=== PATIENT | male | born 1995 | race Caucasian/White ===

== ENCOUNTER 2020-05-12 22:40 | Emergency (ER) | payer OTHER, SELFPAY ==
[2020-05-12 22:44] VITALS: BP 128/87; PULSE 121; RESP 16; TEMP 37.5; O2SAT 98
[2020-05-12 23:31] LABS: Basophils Percent Auto 0.5 % (0.2-1.2); Eosinophils Percent Auto 0.8 % (0-4.4); Hematocrit 41.7 % (42.0-52.0); Hemoglobin 14.3 g/dL (14.0-18.0); Immature Granulocyte Absolute 0.03 K/mm3 (0.00-0.031); Immature Granulocyte Percent A 0.8 % (0-0.5); Lymphocytes Absolute Auto 1.08 K/mm3 (0.9-3.2); Lymphocytes Percent Auto 27.8 % (18.3-44.2); Mean Corpuscular HGB Conc 34.3 g/dl (32-36); Mean Corpuscular Hemoglobin 30.4 pg (26-34); Mean Corpuscular Volume 88.7 fl (80-100); Mean Platelet Volume 10.4 fl (7.4-10.4); Monocytes Absolute Auto 0.4 K/mm3 (0.1-0.6); Monocytes Percent Auto 10.6 % (2.6-8.5); Neutrophils Absolute Auto 2.3 K/mm3 (1.3-6.7); Neutrophils Percent Auto 59.5 % (45.5-73.1); Platelet Count Result 176 k/mm3 (150-375); Red Cell Distribution Width 12.5 % (11.5-14.5); White Blood Count 3.9 K/mm3 (4.5-10.0)
[2020-05-12 23:37] LABS: Add Urine Microscopic? YES; Appearance Urine Clear (Clear); Bilirubin Urine Negative (Negative); Blood Urine Negative (Negative); Color Urine Yellow (Yellow); Glucose Urine UA Negative (Negative); Ketones Urine Negative (Negative); Leukocyte Esterase Ur Negative LEU/UL (Negative); Mucus Urine Rare /lpf; Nitrate Urine Negative (Negative); Protein Urine Negative (Negative); RBC Urine 0-2 /hpf (0-2); Specific Grav Ur 1.006 (1.001-1.035); WBC Urine 0-3 /hpf
[2020-05-12 23:47] LABS: Alanine Aminotransferase 184 U/L (4-50); Albumin Level 4.1 g/dL (3.5-5.1); Alkaline Phosphatase 115 U/L (38-126); Anion Gap 3 mmol/L (8-16); Aspartate Amino Transferase 160 U/L (17-59); Bilirubin,Total 1.1 mg/dL (0.2-1.3); Blood Urea Nitrogen 8 mg/dL (9-20); Calcium 8.9 mg/dL (8.4-10.2); Carbon Dioxide 30 mmol/L (22-30); Chloride 103 mmol/L (98-107); Estimated CRCL calculation 121 ml/min; Estimated Glomerular Filt Rate > 60; Glucose 120 mg/dL (75-110); Lipase 74 U/L (23-300); Potassium 4.2 mmol/L (3.4-5.0); Sodium 136 mmol/L (137-145)
[2020-05-12 23:51] LABS: Amphetamine Screen Urine Negative (Negative); Barbiturate Screen Urine Negative (Negative); Benzodiazepines Screen Urine Negative (Negative); Cannabinoid Screen Urine Negative (Negative); Cocaine Screen Urine Negative (Negative); Methadone Screen Urine Negative (Negative); Opiate Screen Urine Negative (Negative); Phencyclidine Screen Urine Negative (Negative)
--- NOTE | 2020-05-12 23:57 | ED.GENADULT ---
HPI - General Adult General Chief complaint: Unspecified Stated complaint: dehydration Time Seen by Provider: 05/12/20 23:12 Source: patient Mode of arrival: ambulatory Limitations: no limitations History of Present Illness HPI narrative: 24-year-old male Patient presents with complaint that he is severely dehydrated Patient states that Sunday and Sunday he was working long hours and did not drink very much because he did not have time, although he did eat normally, but not completely clear why he would not of taking in fluids since he does not complain of nausea or vomiting or diarrhea or inability to access them Then yesterday and today he has had muscle aches and this evening reports he had a temperature of 103 at home With that he has no other particular focal complaints, specifically no sore throat, no cough, no chest pain, no vomiting or diarrhea, no urinary symptoms, no new rashes As well the patient states that he already had Covid Related Data Home Medications Medication Instructions Recorded Confirmed No Home Medications 05/12/20 Allergies Allergy/AdvReac Type Severity Reaction Status Date / Time No Known Allergies Allergy Mild Verified 05/12/20 22:45 [facility] Social History Social History Gender identity (if verbalized by the patient): Male Sexual Orientation (if Verbalized by the Patient): Straight or Heterosexual Course Course Emergency Course: Negative strep and influenza Other work-up and labs likewise nondiagnostic although low white count is certainly consistent with viral syndrome Seems like it would be too soon in the year for any type of tickborne illness Recommended isolation pending Covid outcome, and follow-up with his primary for consideration of other evaluation if his symptoms persist and that is negative Vital Signs Vital signs: Vital Signs Temperature 37.5 C 05/12/20 22:44 Pulse Rate 121 H 05/12/20 22:44 Respiratory Rate 16 05/12/20 22:44 Blood Pressure 128/87 05/12/20 22:44 Pulse Oximetry 98 05/12/20 22:44 Temperature 37.5 C 05/12/20 22:44 Pulse Rate 121 H 05/12/20 22:44 Respiratory Rate 16 05/12/20 22:44 Blood Pressure 128/87 05/12/20 22:44 Pulse Oximetry 98 05/12/20 22:44 Medical Decision Making Vital Signs Vital Signs: Vital Signs Temperature 37.5 C 05/12/20 22:44 Pulse Rate 121 H 05/12/20 22:44 Respiratory Rate 16 05/12/20 22:44 Blood Pressure 128/87 05/12/20 22:44 Pulse Oximetry 98 05/12/20 22:44 Temperature 37.5 C 05/12/20 22:44 Pulse Rate 121 H 05/12/20 22:44 Respiratory Rate 16 05/12/20 22:44 Blood Pressure 128/87 05/12/20 22:44 Pulse Oximetry 98 05/12/20 22:44 Lab Data Result diagrams: 05/12/20 23:19 05/12/20 23:19 Labs: Lab Results 05/12/20 05/12/20 05/12/20 Range/Units 23:19 23:19 23:19 WBC 3.9 L (4.5-10.0) K/mm3 RBC 4.70 (4.6-6.20) M/mm3 Hgb 14.3 (14.0-18.0) g/dL Hct 41.7 L (42.0-52.0) % MCV 88.7 (80-100) fl MCH 30.4 (26-34) pg MCHC 34.3 (32-36) g/dl RDW 12.5 (11.5-14.5) % Plt Count 176 (150-375) k/mm3 MPV 10.4 (7.4-10.4) fl Immature Gran % (Auto) 0.8 H (0-0.5) % Neut % (Auto) 59.5 (45.5-73.1) % Lymph % (Auto) 27.8 (18.3-44.2) % [place] % (Auto) 10.6 H (2.6-8.5) % Eos % (Auto) 0.8 (0-4.4) % Baso % (Auto) 0.5 (0.2-1.2) % Lymph # (Auto) 1.08 (0.9-3.2) K/mm3 [place] # (Auto) 0.4 (0.1-0.6) K/mm3 Eos # (Auto) 0.0 (0-0.3) K/mm3 Baso # (Auto) 0.0 (0.0-0.1) K/mm3 Abs Immat Gran (auto) 0.03 (0.00-0.031) K/mm3 Absolute Neuts (auto) 2.3 (1.3-6.7) K/mm3 Absolute Nucleated RBC 0.0 (0.0-0.012) K/mm3 Nucleated RBC % 0.0 (0.0-0.2) % Sodium 136 L (137-145) mmol/L Potassium 4.2 (3.4-5.0) mmol/L Chloride 103 (98-107) mmol/L Carbon Dioxide 30 (22-30) mmol/L Anion Gap 3 L (8-16) mmol/L BUN 8 L (
[2020-05-13 00:02] LABS: Creatine Kinase 49 U/L (55-170)
[2020-05-13 00:15] VITALS: BP 128/71; PULSE 101; RESP 16; O2SAT 99
[2020-05-13] MEDS: LACTATED RINGERS 1,000 ML 999 ML IV CONT (00:17)
--- NOTE | 2020-05-13 00:57 | ECG_ITS ---
Measurements Intervals [place] Rate: 83 P: 42 TX: 124 QRS: 69 QRSD: 100 T: 41 QT: 337 QTc: 397 Interpretive Statements SINUS RHYTHM ST ELEVATION IN ANTEROLAT/HIGH LAT LEADS- PROBABLY EARLY REPOLARIZATION BORDERLINE ECG Electronically Signed On 05-13-2020 7:12:58 CDT by Tyron Zapata D.O.
[2020-05-13 01:18] VITALS: BP 123/72; PULSE 89; RESP 16; O2SAT 99
[2020-05-13 01:49] LABS: Troponin I < 0.012 ng/mL (0.000-0.034)
[2020-05-13 17:33] LABS: SARS-CoV-2 RNA PCR Negative
--- NOTE | 2020-06-02 07:26 | ED.GENADULT ---
HPI - General Adult General Chief complaint: Unspecified Stated complaint: dehydration Time Seen by Provider: 05/12/20 23:12 Source: patient Mode of arrival: ambulatory Limitations: no limitations Related Data Allergies Allergy/AdvReac Type Severity Reaction Status Date / Time No Known Allergies Allergy Mild Verified 05/12/20 22:45 Review of Systems Review of Systems: All systems reviewed & are unremarkable except as noted in HPI and below Constitutional: Constitutional: Reports no additional constitutional complaints, Denies chills, Denies fever(s) and Denies headache(s) Eyes: Eyes: Reports no additional eye complaints and Denies change in vision ENT: Denies headache(s) and Denies sore throat Cardiovascular: Cardiovascular: Denies chest pain and Denies dyspnea Respiratory: Respiratory: Denies cough and Denies dyspnea Gastrointestinal: Gastrointestinal: Denies abdominal pain, Denies diarrhea and Denies vomiting Genitourinary: Genitourinary: Denies dysuria and Denies urinary frequency Musculoskeletal: Musculoskeletal: Denies deformity, Denies arthralgias, Denies joint swelling and Denies numbness Integumentary/Breasts: Skin/Breast: Denies rash and Denies wounds Neurologic: Denies headache(s), Denies focal weakness and Denies numbness Psychiatric: Psychiatric: Reports no additional psychiatric complaints Endocrine: Endocrine: Reports no additional endocrine complaints Hematologic/Lymphatic: Hematologic/Lymphatic: Reports no additional hematologic/lymphatic complaints Allergic/Immunologic: Allergic/Immunologic: Reports no additional allergic/immunologic complaints [facility] Past Medical History Medical History (Updated 05/17/20 @ 16:09 by Matthew Townsend MD) Acute hepatitis Encounter for screening for other viral diseases [place], enteric Family History Family History (Updated 05/17/20 @ 15:30 by Karan Garcia CMA) Grandparent Non-Hodgkin lymphoma Malignant neoplasm of prostate Social History Social History (Updated 05/17/20 @ 15:24 by Karan Garcia CMA) Smoking status: Never smoker Alcohol intake: never Substance use: never Gender identity (if verbalized by the patient): Male Course Vital Signs Vital signs: Vital Signs Temperature 37.5 C 05/12/20 22:44 Pulse Rate 121 H 05/12/20 22:44 Respiratory Rate 16 05/12/20 22:44 Blood Pressure 128/87 05/12/20 22:44 Pulse Oximetry 98 05/12/20 22:44 Temperature 37.5 C 05/12/20 22:44 Pulse Rate 89 05/13/20 01:18 Respiratory Rate 16 05/13/20 01:18 Blood Pressure 123/72 05/13/20 01:18 Pulse Oximetry 99 05/13/20 01:18 Medical Decision Making Vital Signs Vital Signs: Vital Signs Temperature 37.5 C 05/12/20 22:44 Pulse Rate 121 H 05/12/20 22:44 Respiratory Rate 16 05/12/20 22:44 Blood Pressure 128/87 05/12/20 22:44 Pulse Oximetry 98 05/12/20 22:44 Temperature 37.5 C 05/12/20 22:44 Pulse Rate 89 05/13/20 01:18 Respiratory Rate 16 05/13/20 01:18 Blood Pressure 123/72 05/13/20 01:18 Pulse Oximetry 99 05/13/20 01:18 Lab Data Result diagrams: 05/12/20 23:19 05/12/20 23:19 Labs: Lab Results 05/12/20 05/12/20 05/12/20 Range/Units 23:19 23:19 23:19 WBC 3.9 L (4.5-10.0) K/mm3 RBC 4.70 (4.6-6.20) M/mm3 Hgb 14.3 (14.0-18.0) g/dL Hct 41.7 L (42.0-52.0) % MCV 88.7 (80-100) fl MCH 30.4 (26-34) pg MCHC 34.3 (32-36) g/dl RDW 12.5 (11.5-14.5) % Plt Count 176 (150-375) k/mm3 MPV 10.4 (7.4-10.4) fl Immature Gran % (Auto) 0.8 H (0-0.5) % Neut % (Auto) 59.5 (45.5-73.1) % Lymph % (Auto) 27.8 (18.3-44.2) % [place] % (Auto) 10.6 H (2.6-8.5) % Eos % (Auto) 0.8 (0-4.4) % Baso % (Auto) 0.5 (0.2-1.2) % Lymph # (Auto) 1.08 (0.9-3.2) K/mm3 [place] # (Auto) 0.4 (0.1-0.6) K/mm3 Eos # (Auto) 0.0 (0-0.3) K/mm3 Baso # (Auto) 0.0 (0.0-0.1) K/m
== END 2020-05-13 01:35 | disposition home or self-care (01) ==
PROVIDERS: Emergency Medicine; Emergency Provider Emergency Medicine; PCP Family Medicine
DX: B34.9 Viral infection, unspecified (principal); Z86.16 Personal history of COVID-19; Z20.822 Contact with and (suspected) exposure to COVID-19
CPT/HCPCS: 36415; 80053; 80307; 81001; 82550; 83690; 84484; 85025; 87081; 87804; 87880; 93005; 96360; 99284; C9803; J7120; U0003; U0005

== ENCOUNTER 2020-05-13 10:44 | Outpatient (NON) | payer OTHER, SELFPAY ==
[2020-05-13 10:54] LABS: Monoscreen Negative (Negative); Negative Monotest Control Negative (Negative); Positive Monotest Control Positive (Positive)
[2020-05-13 11:25] LABS: HAV RESULT Negative (Negative); Hepatitis B Core IgM Result Negative (Negative); Hepatitis B Surface Antigen Negative (Negative); Hepatitis C Virus Antibody Negative (Negative)
== END 2020-05-13 10:45 ==
PROVIDERS: PCP Family Medicine; Visit Provider Family Medicine
DX: B17.9 Acute viral hepatitis, unspecified (principal)
CPT/HCPCS: 36415; 80074; 86308

== ENCOUNTER 2020-05-19 09:01 | Outpatient (CLI) | payer OTHER, SELFPAY ==
--- NOTE | ~2020-05-19 | US_ITS ---
EXAMINATION: US right upper quadrant DATE: 05/19/2020 09:24 INDICATION: Acute viral hepatitis. Abnormal liver function tests. TECHNIQUE: Multiple grayscale and Doppler ultrasound images of the abdomen were obtained. COMPARISON: None FINDINGS: The visualized portions of the head, body, and tail of the pancreas are normal. The liver i s normal without focal lesion. No liver surface nodularity. There is normal flow in main portal vein. The gallbladder is normal in size. No gallstones or gallbladder wall thickening. There was no sonogr aphy Quan's sign. The common duct is normal and measures 3 mm. IMPRESSION: 1. Normal right upper quadrant ultrasound. Reviewed, dictated and finalized at location A.
== END 2020-05-19 09:02 | disposition home or self-care (01) ==
PROVIDERS: PCP Family Medicine; Visit Provider Family Medicine
DX: B17.9 Acute viral hepatitis, unspecified (principal)
CPT/HCPCS: 76705

== ENCOUNTER 2022-03-15 00:02 | Day surgery (SDC) | payer OTHER, SELFPAY ==
[2022-03-07 13:58] VITALS: BMI 26.9
[2022-03-15 06:19] VITALS: BP 144/88; PULSE 80; RESP 20; TEMP 36.7; O2SAT 100; BMI 27.3
[2022-03-15] MEDS: LACTATED RINGERS 1,000 ML 150 ML IV CONT (06:27)
--- NOTE | 2022-03-15 07:23 | WPDANESEPPF ---
Anes - Initial Pre Proc Eval Procedure: Operation Date: 03/15/22 07:30 Proposed Procedures p Esophagogastroduodenoscopy - Mc Argueta MD Date/Time: 03/15/22 07:23 Surgeon: Mc Argueta MD Pre Op Diagnosis: GERD Patient Data Age: 26 Gender: M Height: 1.83 m Weight: 91.3 kg Last Vital Signs Temp 98.1 F 03/15/22 06:19 Pulse 80 03/15/22 06:19 Resp 20 03/15/22 06:19 BP 144/88 H 03/15/22 06:19 Pulse Ox 100 03/15/22 06:19 O2 Del Method Room Air 03/15/22 06:19 Allergies Allergy/AdvReac Type Severity Reaction Status Date / Time No Known Allergies Allergy Mild Verified 03/15/22 06:16 Home Medications Medication Instructions Recorded Confirmed Type pantoprazole 40 mg tablet,delayed 40 mg PO QAM #30 tabs 01/31/22 03/07/22 Rx release (Protonix) Patient hx anesthesia problems: none Family hx anesthesia problems: none Results Review: All pre-operative results and documents have been reviewed as part of the pre-operative evaluation. [facility] Past Medical History Medical History (Updated 01/31/22 @ 13:38 by Matthew Townsend MD) Acute hepatitis Repeat liver enzymes normal on 10/24/2021 with AST 18 and ALT 18. BMI 26.0-26.9,adult COVID-19 positive COVID antibody on 06/01/2020 with probable illness 01/16/2020. The patient does not plan on receiving the vaccination COVID-19 (~02/2021) 2nd episode of COVID February, Elevated ferritin repeat ferritin was normal 10/24/2021 with iron 110, 38% saturation and ferritin 145. Hemoglobin 15.3. Encounter for screening for other viral diseases Encounter for wellness examination in adult [place] virus infection (~05/2020) Gastro-esophageal reflux disease without esophagitis (~08/2021) Overweight (BMI 25.0-29.9) Family History Family History (Updated 05/17/20 @ 15:30 by Karan Garcia CMA) Grandparent Non-Hodgkin lymphoma Malignant neoplasm of prostate Social History Social History (Updated 01/31/22 @ 13:15 by Marylou Hooper MA) Smoking status: Never smoker Alcohol intake: never Substance use: never Substance use type: does not use Lack of Transportation: No Lack of Food: Never True Current Housing: I Have Housing Concerned About Future Housing: No Difficulty Paying Gas/Electric Bills: No Difficulty Paying for Meds: No Currently Unemployed: No Education: Bachelor's Degree Difficulty w/ Childcare or Family Care: No Living arrangements: with family Gender identity (if verbalized by the patient): Male Sexual Orientation (if Verbalized by the Patient): Straight or Heterosexual Spiritual care concerns: No Anes - Eval Final PreProcedure Day of Procedure 03/15/22 07:23 Patient weight: normal Heart: regular rate and rhythm Lungs: clear to auscultation Airway: Mallampati scale class II Neurological: alert and oriented Last oral intake: >/= 8 hours ASA classification: II Emergent: no Anesthetic plan: proceed Anesthesia type and monitoring: general GIVS and standard monitoring Results Review: All pre-operative results and documents have been reviewed as part of the pre-operative evaluation. Informed Consent: The patient's anesthetic plan and its attendant risks and benefits were discussed with the patient/family/POA. Questions were solicited and answers provided to the satisfaction of the patient/family/POA.
--- NOTE | 2022-03-15 07:31 | PM.HPGS ---
History of Present Illness History of Present Illness Consent: Risks, benefits, and alternatives have been discussed and questions answered. Patient agrees to proceed with procedure. Chief complaint: GERD Narrative: Bryan Payne is a 26 year old male with gerd for over 6 months, initially on omeprazole that helped but eventually more symptomatic, now using protonix. Never had egd Review of Systems Constitutional: Constitutional: Denies headache(s) and Denies weakness Eyes: Eyes: Denies blurry vision ENT: Reports Normal hearing present, Denies headache(s) and Denies neck pain Cardiovascular: Cardiovascular: Denies chest pain and Denies dyspnea Respiratory: Respiratory: Denies dyspnea Gastrointestinal: Gastrointestinal: Reports no additional gastrointestinal complaints Genitourinary: Genitourinary: Denies dysuria Musculoskeletal: Musculoskeletal: Denies neck pain Integumentary/Breasts: Skin/Breast: Denies dry skin Neurologic: Reports Normal hearing present, Denies headache(s) and Denies weakness Psychiatric: Psychiatric: Denies anxiety Endocrine: Endocrine: Denies change in body appearance Hematologic/Lymphatic: Hematologic/Lymphatic: Denies easy bleeding Allergic/Immunologic: Allergic/Immunologic: Denies urticaria PMFSH Past Medical History Medical History (Updated 01/31/22 @ 13:38 by Matthew Townsend MD) Acute hepatitis Repeat liver enzymes normal on 10/24/2021 with AST 18 and ALT 18. BMI 26.0-26.9,adult COVID-19 positive COVID antibody on 06/01/2020 with probable illness 01/16/2020. The patient does not plan on receiving the vaccination COVID-19 (~02/2021) 2nd episode of COVID February, Elevated ferritin repeat ferritin was normal 10/24/2021 with iron 110, 38% saturation and ferritin 145. Hemoglobin 15.3. Encounter for screening for other viral diseases Encounter for wellness examination in adult [place] virus infection (~05/2020) Gastro-esophageal reflux disease without esophagitis (~08/2021) Overweight (BMI 25.0-29.9) Family History Family History (Updated 05/17/20 @ 15:30 by Karan Garcia CMA) Grandparent Non-Hodgkin lymphoma Malignant neoplasm of prostate Social History Social History (Updated 01/31/22 @ 13:15 by Marylou Hooper MA) Smoking status: Never smoker Alcohol intake: never Substance use: never Substance use type: does not use Lack of Transportation: No Lack of Food: Never True Current Housing: I Have Housing Concerned About Future Housing: No Difficulty Paying Gas/Electric Bills: No Difficulty Paying for Meds: No Currently Unemployed: No Education: Bachelor's Degree Difficulty w/ Childcare or Family Care: No Living arrangements: with family Gender identity (if verbalized by the patient): Male Sexual Orientation (if Verbalized by the Patient): Straight or Heterosexual Spiritual care concerns: No Meds Home Medications and Allergies Home Medications Medication Instructions Recorded Confirmed Type pantoprazole 40 mg tablet,delayed 40 mg PO QAM #30 tabs 01/31/22 03/07/22 Rx release (Protonix) Allergies Allergy/AdvReac Type Severity Reaction Status Date / Time No Known Allergies Allergy Mild Verified 03/15/22 06:16 Vital Signs Vital Signs - 24 hr 03/15/22 06:19 Temperature 98.1 F Pulse Rate 80 Respiratory Rate 20 Blood Pressure 144/88 H Pulse Oximetry 100 Oxygen Delivery Room Air Exam Const: General: comfortable and no acute distress HENMT: Face/Nose/Sinus: Normal nares present Eyes: General: appearance normal, both eyes and all related structures Neck: Neck: no JVD Resp: Auscultation: clear to auscultation bilaterally Cardio: Rate: regular rate Rhythm: regular rhythm GI: Inspection: non-distended GI Palp: Yes Soft to palpation Skin: General skin exam: normal color Neuro: General: gait normal Speech: normal speech Extrem: General: normal to inspecti
[2022-03-15 07:49] VITALS: BP 133/66; PULSE 81; RESP 24; O2SAT 100
[2022-03-15 07:59] VITALS: BP 133/61; PULSE 81; RESP 23; O2SAT 99
[2022-03-15 08:09] VITALS: BP 115/64; PULSE 80; RESP 25; O2SAT 99
== END 2022-03-15 08:12 | disposition home or self-care (01) ==
PROVIDERS: PCP Family Medicine; Visit Provider Internal Medicine Gastroenterology
PROC: 0DJ08ZZ Inspection of Upper Intestinal Tract, Via Natural or Artificial Opening Endoscopic (ICD-10-PCS; CPT 43235; principal; 2022-03-15 07:30)
DX: K21.9 Gastro-esophageal reflux disease without esophagitis (principal); K75.9 Inflammatory liver disease, unspecified
CPT/HCPCS: 43239; 88305; J2704; J7120